=== PATIENT | male | born 1950 | race African-American/Black ===

== ENCOUNTER → 2017-01-17 | Outpatient (CLI) | payer MEDICARE ==
[2017-01-17 11:30] LABS: HEMATOCRIT 40.4 % (39.0-53.0); HEMOGLOBIN 13.2 g/dL (13.0-17.5)
[2017-01-17 11:37] LABS: ALBUMIN 3.7 g/dL (3.4-5.0); CALCIUM 9.4 mg/dL (8.5-10.1); MAGNESIUM 1.7 mg/dL (1.8-2.4); PHOSPHORUS 2.3 mg/dL (2.6-4.7)
--- NOTE | 2017-01-17 15:25 | RAD ---
Bilateral renal ultrasound to include duplex evaluation of the renal arteries 01/17/2017 Clinical history: Hypertension and diabetes. Technique: Using a combination of real-time ultrasound imaging and color-flow and pulse doppler imaging techniques, duplex evaluation of the abdominal aorta include both kidneys, the renal arteries and the urinary bladder was performed. Multiple images were obtained. Findings: Both kidneys are within normal limits in size and echogenicity. The right kidney measures 10.9 cm in length. The left kidney measures 11.1 cm in length. No focal abnormality of either kidney is seen. Duplex evaluation of renal arteries is within normal limits. There is no sonographic evidence of renal artery stenosis. Mild atheromatous plaque formation is seen involving the abdominal aorta. The abdominal aorta tapers normally. The urinary bladder is distended with urine. The prostate gland is enlarged likely related to BPH. It measures 4.7 x 5.3 x 5.0 cm in longitudinal, transverse and AP dimensions. Impression: 1. There is no sonographic evidence of renal artery stenosis. 2. The prostate gland is enlarged likely related to BPH.
[2017-01-17 18:07] LABS: CALCIUM PTH 9.6 mg/dL (8.6-10.2); CREATININE PTH 0.85 mg/dL (0.76-1.27); MICRO CREAT RATIO 209.7 mg/g creat (0.0-30.0); MICROALB RD UR 157.1 ug/mL (Not Estab.); PTH INTACT 58 pg/mL (15-65); TOTAL PROTEIN CREATININE RATIO 393 mg/g creat (0-200); UR PROTEIN RD 29.4 mg/dL (Not Estab.)
== END | disposition home or self-care (01) ==
LOC: US 09:49
PROVIDERS: ATTEND Internal Medicine Nephrology
DX: N18.2 Chronic kidney disease, stage 2 (mild) (principal); E11.22 Type 2 diabetes mellitus with diabetic chronic kidney disease; I15.0 Renovascular hypertension; N40.0 Benign prostatic hyperplasia without lower urinary tract symptoms; I70.0 Atherosclerosis of aorta
CPT/HCPCS: 36415; 76770; 80069; 82043; 82570; 83735; 83970; 84156; 85014; 85018